=== PATIENT | female | born 1955 | race Caucasian/White ===

== ENCOUNTER → 2019-08-12 | Outpatient (CLI) | payer MEDICARE ==
[~2019-08-12] MED LIST: AZOR 10-20 MG1 EACH; FENTANYL TOP; Z MORPHINE SULFAT PO; Z NEURONTIN PO
--- NOTE | 2019-08-12 14:10 | Diagnostic Imaging Report ---
EXAM: CT Chest WITHOUT intravenous contrast 08/12/2019 1:07 PM INDICATION: Pneumothorax, positive TB test COMPARISON: Chest CT of 11/02/2013 TECHNIQUE: Chest was scanned utilizing a multidetector helical scanner from the lung apex through the level of the adrenal glands without administration of IV contrast. Coronal and sagittal reformations were obtained. Routine protocol was performed. IV CONTRAST: None RADIATION DOSE: Total DLP: 261.6 mGy*cm. Dose modulation, iterative reconstruction, and/or weight based adjustment of the mA/kV was utilized to reduce the radiation dose to as low as reasonably achievable. COMPLICATIONS: None FINDINGS: LINES/ TUBES: None. LUNGS AND AIRWAYS: The central airways are patent. No focal consolidation. Mild bilateral upper lobe predominant centrilobular emphysema. Mild biapical pleural parenchyma thickening/scarring. Postoperative changes related to remote right lobectomy. Bilateral 4 mm pulmonary nodules, for example on the left on series 2 image 83 and on the right on series 2 image 44. PLEURA: No pleural effusion or pneumothorax. HEART AND MEDIASTINUM: The thyroid gland is normal. Prominent bilateral axillary lymph nodes not meeting size criteria for lymphadenopathy. No supra clavicular, mediastinal, or hilar lymphadenopathy. The heart is not enlarged. No pericardial effusion. Scattered atherosclerotic calcifications involve the coronary arteries and thoracic aorta. UPPER ABDOMEN: Limited noncontrast enhanced images of the upper abdomen demonstrate no focal abnormality in the partially visualized liver, spleen, pancreas, adrenals, or upper kidneys. BONES: No acute osseous injury. No suspicious lytic or blastic lesions. SOFT TISSUES: Unremarkable. IMPRESSION: No pneumothorax. No focal pneumonia or pulmonary edema. Bilateral pulmonary nodules measuring up to 4 mm. If the patient is low risk, no further follow-up is needed. If the patient is high risk, follow-up chest CT is optional at 12 months per [employer] guidelines 2017. Signed by: Jerri Wood MD on 08/12/2019 2:07 PM
== END ==
LOC: CT 12:58
PROVIDERS: ATTEND Internal Medicine Critical Care Medicine
DX: R76.11 Nonspecific reaction to tuberculin skin test without active tuberculosis (principal); R91.8 Other nonspecific abnormal finding of lung field
CPT/HCPCS: 71250

== ENCOUNTER 2023-01-26 06:51 | Inpatient (IN) | payer MEDICARE ==
[2023-01-26] VITALS (12 sets, daily range): BP systolic 132–181; BP diastolic 80–107
[~2023-01-26] VITALS: Ht 157.5 cm; Wt 47.6 kg
[2023-01-26 07:15] LABS: HEMATOCRIT 45.2 % (34.2-44.1); HEMOGLOBIN 15.5 g/dL (12.0-16.0); LYMPHOCYTES # (AUTO) 40.6 (1.0-3.2); LYMPHOCYTES % 77.6 % (18.0-39.1); MEAN CORPUSCULAR HEMOGLOBIN 28.7 pg (28-32); MEAN CORPUSCULAR HGB CONC 34.3 g/dL (31-35); MEAN CORPUSCULAR VOLUME 83.5 fL (81-99); MONOCYTES # (AUTO) 0.7 (0.2-0.8); MONOCYTES % 1.4 % (4.4-11.3); NEUTROPHILS # (AUTO) 10.8 (2.1-6.9); NEUTROPHILS % 20.7 % (38.7-80.0); PLATELET COUNT 462 x10e3/uL (140-360); RED BLOOD COUNT 5.41 x10e6/uL (3.6-5.1); RED CELL DISTRIBUTION WIDTH 13.3 % (11.7-14.4)
[2023-01-26] MEDS ORDERED: NITROGLYCERIN 2% OINT 1 GM PKT TOP ONE (07:15)
[2023-01-26] MEDS ORDERED: ASPIRIN 81 MG CHEW TAB PO ONE ×2 (07:30→08:00)
[2023-01-26] MEDS ORDERED: SODIUM CHLORIDE 0.9% 1000ML 1,000 ML IV SCH (07:30)
[2023-01-26 07:39] LABS: ALBUMIN 4.6 g/dL (3.5-5.0); ALBUMIN/GLOBULIN RATIO 1.2 (0.8-2.0); ANION GAP 20.2 mmol/L (8-16); CREATININE, SERUM 1.69 mg/dL (0.57-1.11); POTASSIUM 3.2 mmol/L (3.5-5.1)
[2023-01-26] MEDS: FENTANYL CITRATE/PF 100MCG/2 ML INJ IV PRN ×3 (07:43→21:48)
[2023-01-26] MEDS ORDERED: FENTANYL CITRATE/PF 100MCG/2 ML INJ ONE (07:45)
[2023-01-26] MEDS ORDERED: ASPIRIN 300 MG SUPP PR STA (07:45)
[2023-01-26] MEDS ORDERED: ASPIRIN 300 MG SUPP PR ONE (07:49)
[2023-01-26] MEDS ORDERED: HEPARIN SOD (PORCINE) 5,000 UNIT/ML VIAL IV ONE (08:00)
[2023-01-26 08:03] LABS: INR 1.29; PROTHROMBIN TIME 16.6 seconds (11.9-14.5)
[2023-01-26] MEDS ORDERED: HYDRALAZINE HCL 20 MG/ML VIAL IV STA (08:04)
[2023-01-26] MEDS ORDERED: HEPARIN 25,000 UNIT DRIP IV ONE (08:10)
[2023-01-26] MEDS: Morphine 4mg INJECTION 4 MG/ML INJ IV PRN ×5 (08:15→23:31)
[2023-01-26] MEDS ORDERED: METOCLOPRAMIDE HCL 10 MG/2ML VIAL IV ONE (08:15)
[2023-01-26 08:19] LABS: CLARITY,URINE CLEAR (CLEAR); COLOR,URINE YELLOW (YELLOW); KETONES,URINE NEGATIVE (NEGATIVE); LEUKOCYTE ESTERASE ,URINE NEGATIVE (NEGATIVE); NITRITE,URINE NEGATIVE (NEGATIVE); PROTEIN,URINE DIPSTICK >=300 (NEGATIVE); URINE UROBILINOGEN 0.2 mg/dL (0.2 - 1)
[2023-01-26 08:22] LABS: BACTERIA,URINE MANY /HPF; EPITHELIAL CELLS,URINE FEW /LPF
[2023-01-26] MEDS ORDERED: HYDRALAZINE HCL 20 MG/ML VIAL ONE (08:22)
[2023-01-26] MEDS ORDERED: CLOPIDOGREL BISULFATE 75 MG TAB PO ONE (08:30)
[2023-01-26 08:32] LABS: LYMPHOCYTES % (MANUAL) 79 % (19-48); MONOCYTES % (MANUAL) 2 % (3.4-9.0); NEUTROPHILS % (MANUAL) 18 % (40-74); PLATELET ESTIMATE ADEQUATE
[2023-01-26 08:33] LABS: PLATELET MORPHOLOGY COMMENT NORMAL; RBC MORPHOLOGY COMMENT NORMAL
[2023-01-26] MEDS: HEPARIN 25,000 UNIT/D5W 250ML 600 UNIT in DEXTROSE 5% 250ML 250 ML IV SCH (08:35)
[2023-01-26] MEDS ORDERED: METOCLOPRAMIDE HCL 10 MG/2ML VIAL ONE (08:36)
[2023-01-26] MEDS: SODIUM CHLORIDE 0.9% 1000ML 1,000 ML IV SCH (13:06)
[2023-01-26 14:46] LABS: CREATINE KINASE MB 9.3 ng/mL (0-5.0)
[2023-01-26] MEDS: FAMOTIDINE 20 MG TAB PO SCH (15:37)
[2023-01-26] MEDS: ACETAMINOPHEN/CODEINE 300MG - 30MG TAB PO PRN (20:00)
[2023-01-26] MEDS: ATORVASTATIN 40 MG TAB PO SCH ×3 (21:00→21:59)
[2023-01-26] MEDS ORDERED: METOPROLOL TARTRATE INJ 1 MG/ML VIAL IV PRN (21:45)
[2023-01-26 22:42] LABS: CREATINE KINASE MB 7.1 ng/mL (0-5.0)
[2023-01-26] MEDS: ONDANSETRON HCL INJ 2MG/ML 2ML 2 MG/ML VIAL IV PRN (23:10)
[2023-01-27] VITALS (23 sets, daily range): BP systolic 132–179; BP diastolic 69–96
[2023-01-27] MEDS: FENTANYL CITRATE/PF 100MCG/2 ML INJ IV PRN ×4 (00:12→06:18)
[2023-01-27] MEDS: ONDANSETRON HCL INJ 2MG/ML 2ML 2 MG/ML VIAL IV PRN ×3 (03:10→20:01)
[2023-01-27] MEDS: Morphine 4mg INJECTION 4 MG/ML INJ IV PRN ×5 (03:34→20:02)
[2023-01-27] MEDS: SODIUM CHLORIDE 0.9% 1000ML 1,000 ML IV SCH ×2 (03:45→20:02)
[2023-01-27 05:21] LABS: BASOPHILS % 0.1 % (0.0-1.0); HEMATOCRIT 37.2 % (34.2-44.1); HEMOGLOBIN 12.2 g/dL (12.0-16.0); LYMPHOCYTES # (AUTO) 30.6 (1.0-3.2); LYMPHOCYTES % 81.4 % (18.0-39.1); MEAN CORPUSCULAR HEMOGLOBIN 28.2 pg (28-32); MEAN CORPUSCULAR HGB CONC 32.8 g/dL (31-35); MEAN CORPUSCULAR VOLUME 86.1 fL (81-99); MONOCYTES # (AUTO) 0.6 (0.2-0.8); MONOCYTES % 1.5 % (4.4-11.3); NEUTROPHILS # (AUTO) 6.3 (2.1-6.9); NEUTROPHILS % 16.8 % (38.7-80.0); PLATELET COUNT 354 x10e3/uL (140-360); RED BLOOD COUNT 4.32 x10e6/uL (3.6-5.1); RED CELL DISTRIBUTION WIDTH 13.3 % (11.7-14.4)
[2023-01-27 05:31] LABS: ANION GAP 12.2 mmol/L (8-16); CALCIUM 9.3 mg/dL (8.4-10.2); CREATININE, SERUM 1.02 mg/dL (0.57-1.11); MAGNESIUM 1.6 MG/DL (1.3-2.1); PHOSPHORUS 2.4 MG/DL (2.3-4.7); POTASSIUM 3.2 mmol/L (3.5-5.1)
[2023-01-27] MEDS: HYDRALAZINE HCL 20 MG/ML VIAL IV PRN (05:33)
[2023-01-27] MEDS: FAMOTIDINE 20 MG TAB PO SCH ×2 (07:27→16:30)
[2023-01-27] MEDS: ASPIRIN 325 MG TAB PO SCH (07:33)
[2023-01-27] MEDS: HEPARIN 25,000 UNIT/D5W 250ML 600 UNIT in DEXTROSE 5% 250ML 250 ML IV SCH (08:00)
[2023-01-27 10:33] LABS: LYMPHOCYTES % (MANUAL) 61 % (19-48); NEUTROPHILS % (MANUAL) 39 % (40-74); SMUDGE CELLS MANY
[2023-01-27 10:36] LABS: PLATELET ESTIMATE ADEQUATE; PLATELET MORPHOLOGY COMMENT NORMAL; RBC MORPHOLOGY COMMENT NORMAL
[2023-01-27] MEDS ORDERED: PAMIDRONATE DISODIUM 90 MG in SODIUM CHLORIDE 0.9% 500ML 500 ML IV ONE (11:00)
[2023-01-27] MEDS: ATORVASTATIN 40 MG TAB PO SCH (20:01)
[2023-01-28] VITALS (20 sets, daily range): BP systolic 131–170; BP diastolic 70–93
[2023-01-28] MEDS: ONDANSETRON HCL INJ 2MG/ML 2ML 2 MG/ML VIAL IV PRN ×5 (00:10→23:09)
[2023-01-28] MEDS: Morphine 4mg INJECTION 4 MG/ML INJ IV PRN ×6 (00:11→23:09)
[2023-01-28 04:45] LABS: BASOPHILS # (AUTO) 0.1 (0.0-0.1); BASOPHILS % 0.2 % (0.0-1.0); EOSINOPHILS % 0.2 % (0.0-6.0); HEMATOCRIT 34.2 % (34.2-44.1); LYMPHOCYTES # (AUTO) 21.7 (1.0-3.2); LYMPHOCYTES % 84.3 % (18.0-39.1); MEAN CORPUSCULAR HEMOGLOBIN 28.6 pg (28-32); MEAN CORPUSCULAR HGB CONC 32.2 g/dL (31-35); MONOCYTES # (AUTO) 0.3 (0.2-0.8); MONOCYTES % 1.3 % (4.4-11.3); NEUTROPHILS # (AUTO) 3.6 (2.1-6.9); NEUTROPHILS % 13.9 % (38.7-80.0); PLATELET COUNT 235 x10e3/uL (140-360); RED BLOOD COUNT 3.84 x10e6/uL (3.6-5.1)
[2023-01-28 04:49] LABS: MEAN CORPUSCULAR VOLUME 89.1 fL (81-99)
[2023-01-28 05:01] LABS: CALCIUM 8.2 mg/dL (8.4-10.2); CREATININE, SERUM 0.78 mg/dL (0.57-1.11)
[2023-01-28] MEDS: HEPARIN 25,000 UNIT/D5W 250ML 600 UNIT in DEXTROSE 5% 250ML 250 ML IV SCH (08:00)
[2023-01-28] MEDS: FAMOTIDINE 20 MG TAB PO SCH ×2 (08:31→17:06)
[2023-01-28] MEDS: ASPIRIN 325 MG TAB PO SCH (08:32)
[2023-01-28] MEDS: SODIUM CHLORIDE 0.9% 1000ML 1,000 ML IV SCH (09:36)
[2023-01-28] MEDS ORDERED: POTASSIUM CHLORIDE 10MEQ EA PO ONE (11:15)
[2023-01-28 11:33] LABS: LYMPHOCYTES % (MANUAL) 76 % (19-48); MONOCYTES % (MANUAL) 1 % (3.4-9.0); NEUTROPHILS % (MANUAL) 23 % (40-74)
[2023-01-28 11:35] LABS: PLATELET ESTIMATE ADEQUATE; PLATELET MORPHOLOGY COMMENT NORMAL; SMUDGE CELLS MANY
[2023-01-28] MEDS: ACETAMINOPHEN/CODEINE 300MG - 30MG TAB PO PRN (12:47)
[2023-01-28] MEDS: METOPROLOL TARTRATE 25 MG TAB PO SCH (17:08)
[2023-01-28] MEDS: NITROGLYCERIN 0.4 MG PATCH TOP SCH (17:43)
[2023-01-28] MEDS ORDERED: AMBIEN10 MG PO (17:51)
[2023-01-28] MEDS ORDERED: METHOCARBAMOL500 MG PO (18:25)
[2023-01-28] MEDS ORDERED: BROMPHENIR-PSE118 ML (18:25)
[2023-01-28] MEDS ORDERED: GABAPENTIN300 MG PO (18:25)
[2023-01-28] MEDS ORDERED: METHYLPREDNISOLO4 M1 (18:25)
[2023-01-28] MEDS ORDERED: MIRTAZAPINE15 MG (18:25)
[2023-01-28] MEDS ORDERED: CLONIDINE HCL0.1 MG PO (18:25)
[2023-01-28] MEDS ORDERED: LOSARTAN POTAS100 MG PO (18:25)
[2023-01-28] MEDS ORDERED: METHADONE H5 MG/5 ML PO (18:25)
[2023-01-28] MEDS ORDERED: DICLOFENAC SOD100 GM (18:25)
[2023-01-28] MEDS ORDERED: ONDANSETRON HCL8 MG PO (18:25)
[2023-01-28] MEDS ORDERED: ZOLPIDEM TARTRATE 10 MG TAB PO PRN (19:00)
[2023-01-28] MEDS: ATORVASTATIN 40 MG TAB PO SCH (20:16)
[2023-01-29] VITALS (11 sets, daily range): BP systolic 133–169; BP diastolic 74–84
[2023-01-29] MEDS: SODIUM CHLORIDE 0.9% 1000ML 1,000 ML IV SCH ×2 (03:21→16:19)
[2023-01-29] MEDS: ONDANSETRON HCL INJ 2MG/ML 2ML 2 MG/ML VIAL IV PRN (03:58)
[2023-01-29] MEDS: Morphine 4mg INJECTION 4 MG/ML INJ IV PRN ×3 (03:58→14:38)
[2023-01-29 04:54] LABS: BASOPHILS # (AUTO) 0.1 (0.0-0.1); BASOPHILS % 0.3 % (0.0-1.0); EOSINOPHILS # (AUTO) 0.1 (0.0-0.4); EOSINOPHILS % 0.4 % (0.0-6.0); HEMATOCRIT 33.6 % (34.2-44.1); HEMOGLOBIN 10.5 g/dL (12.0-16.0); LYMPHOCYTES % 81.7 % (18.0-39.1); MEAN CORPUSCULAR HEMOGLOBIN 28.2 pg (28-32); MEAN CORPUSCULAR HGB CONC 31.3 g/dL (31-35); MEAN CORPUSCULAR VOLUME 90.3 fL (81-99); MONOCYTES # (AUTO) 0.3 (0.2-0.8); MONOCYTES % 1.2 % (4.4-11.3); NEUTROPHILS # (AUTO) 3.7 (2.1-6.9); NEUTROPHILS % 16.1 % (38.7-80.0); PLATELET COUNT 234 x10e3/uL (140-360); RED BLOOD COUNT 3.72 x10e6/uL (3.6-5.1); RED CELL DISTRIBUTION WIDTH 14.2 % (11.7-14.4)
[2023-01-29 05:19] LABS: ANION GAP 13.6 mmol/L (8-16); CALCIUM 7.6 mg/dL (8.4-10.2); CREATININE, SERUM 0.91 mg/dL (0.57-1.11); POTASSIUM 3.6 mmol/L (3.5-5.1)
[2023-01-29 08:01] LABS: EOSINOPHILS % (MANUAL) 2 % (0-7); LYMPHOCYTES % (MANUAL) 56 % (19-48); MONOCYTES % (MANUAL) 4 % (3.4-9.0); NEUTROPHILS % (MANUAL) 38 % (40-74); PLATELET ESTIMATE ADEQUATE; PLATELET MORPHOLOGY COMMENT NORMAL; RBC MORPHOLOGY COMMENT NORMAL
[2023-01-29] MEDS: FAMOTIDINE 20 MG TAB PO SCH ×2 (08:08→16:08)
[2023-01-29] MEDS: ASPIRIN 325 MG TAB PO SCH (08:08)
[2023-01-29] MEDS: METOPROLOL TARTRATE 25 MG TAB PO SCH ×2 (08:09→16:09)
[2023-01-29] MEDS: NITROGLYCERIN 0.4 MG PATCH TOP SCH (08:09)
[2023-01-29] MEDS ORDERED: NITROGLYCERIN 0.4 MG PATCH TOP SCH (09:00)
[2023-01-29] MEDS: HYDRALAZINE HCL 20 MG/ML VIAL IV PRN (17:05)
[2023-01-29] MEDS ORDERED: LOPRESSOR25 MG PO (19:16)
[2023-01-29] MEDS ORDERED: FAMOTIDINE20 MG PO (19:16)
[2023-01-29] MEDS ORDERED: ASPIRIN EC81 MG PO (19:16)
[2023-01-29] MEDS ORDERED: Atorvastatin PO (19:16)
[2023-01-29] MEDS ORDERED: PLAVIX75 MG PO (19:23)
[2023-01-29] MEDS: ACETAMINOPHEN/CODEINE 300MG - 30MG TAB PO PRN (19:59)
== END 2023-01-29 20:10 | disposition home or self-care (01) | DRG 281 ==
LOC: ER 06:57 → ERHOLD 07:55 → ICU 12:37
PROVIDERS: ADMIT Internal Medicine; ATTEND Internal Medicine
DX: I21.4 Non-ST elevation (NSTEMI) myocardial infarction (principal); C91.10 Chronic lymphocytic leukemia of B-cell type not having achieved remission; N17.9 Acute kidney failure, unspecified; N39.0 Urinary tract infection, site not specified; M62.82 Rhabdomyolysis; J44.9 Chronic obstructive pulmonary disease, unspecified; E87.6 Hypokalemia; E83.52 Hypercalcemia; I12.9 Hypertensive chronic kidney disease with stage 1 through stage 4 chronic kidney disease, or unspecified chronic kidney disease; N18.9 Chronic kidney disease, unspecified; E88.09 Other disorders of plasma-protein metabolism, not elsewhere classified; E78.5 Hyperlipidemia, unspecified; Z20.822 Contact with and (suspected) exposure to COVID-19; Z88.0 Allergy status to penicillin; Z87.891 Personal history of nicotine dependence; Z88.2 Allergy status to sulfonamides; Z59.6 Low income
CPT/HCPCS: 36415; 51700; 71045; 71250; 74176; 80048; 80053; 81001; 82550; 82553; 82784; 83690; 83735; 83970; 84100; 84484; 85025; 85379; 85384; 85610; 85730; 93005; 93306; 94799; 99252; 99285; J1644; J2270; J2405; J2430; J2765; J7030; J7040

== ENCOUNTER 2023-01-31 03:51 | Emergency (ER) | payer MEDICARE ==
[~2023-01-31] VITALS: Ht 157.5 cm; Wt 47.6 kg
[~2023-01-31 03:51] MED LIST changes: +AMBIEN10 MG PO; +ASPIRIN EC81 MG PO; +Atorvastatin PO; +BROMPHENIR-PSE118 ML; +CLONIDINE HCL0.1 MG PO; +DICLOFENAC SOD100 GM; +FAMOTIDINE20 MG PO; +GABAPENTIN300 MG PO; +LOPRESSOR25 MG PO; +LOSARTAN POTAS100 MG PO; +METHADONE H5 MG/5 ML PO; +METHOCARBAMOL500 MG PO; +METHYLPREDNISOLO4 M1; +MIRTAZAPINE15 MG; +ONDANSETRON HCL8 MG PO; +PLAVIX75 MG PO
[2023-01-31] MEDS ORDERED: ONDANSETRON HCL INJ 2MG/ML 2ML 2 MG/ML VIAL IV STA (04:03)
[2023-01-31 04:06] LABS: BASOPHILS # (AUTO) 0.1 (0.0-0.1); BASOPHILS % 0.2 % (0.0-1.0); EOSINOPHILS % 0.1 % (0.0-6.0); HEMATOCRIT 40.8 % (34.2-44.1); HEMOGLOBIN 13.2 g/dL (12.0-16.0); LYMPHOCYTES # (AUTO) 26.2 (1.0-3.2); LYMPHOCYTES % 69.6 % (18.0-39.1); MEAN CORPUSCULAR HEMOGLOBIN 28.4 pg (28-32); MEAN CORPUSCULAR HGB CONC 32.4 g/dL (31-35); MEAN CORPUSCULAR VOLUME 87.7 fL (81-99); MONOCYTES # (AUTO) 0.5 (0.2-0.8); MONOCYTES % 1.4 % (4.4-11.3); NEUTROPHILS # (AUTO) 10.7 (2.1-6.9); NEUTROPHILS % 28.5 % (38.7-80.0); PLATELET COUNT 274 x10e3/uL (140-360); RED BLOOD COUNT 4.65 x10e6/uL (3.6-5.1); RED CELL DISTRIBUTION WIDTH 13.6 % (11.7-14.4)
[2023-01-31] MEDS ORDERED: Morphine 4mg INJECTION 4 MG/ML INJ IV ONE (04:15)
[2023-01-31] MEDS ORDERED: Morphine 4mg INJECTION 4 MG/ML INJ ONE (04:19)
[2023-01-31] MEDS ORDERED: ONDANSETRON HCL INJ 2MG/ML 2ML 2 MG/ML VIAL ONE (04:20)
[2023-01-31 04:25] LABS: ALBUMIN/GLOBULIN RATIO 1.3 (0.8-2.0); ANION GAP 18.5 mmol/L (8-16); CALCIUM 8.8 mg/dL (8.4-10.2); CREATININE, SERUM 0.89 mg/dL (0.57-1.11); POTASSIUM 3.5 mmol/L (3.5-5.1)
[2023-01-31] MEDS ORDERED: NITROGLYCERIN 2% OINT 1 GM PKT TOP ONE (04:30)
[2023-01-31 04:32] LABS: CREATINE KINASE MB 2.1 ng/mL (0-5.0)
[2023-01-31] MEDS ORDERED: NITROGLYCERIN 2% OINT 1 GM PKT ONE (04:44)
[2023-01-31 05:16] LABS: CREATINE KINASE MB 2.1 ng/mL (0-5.0)
== END 2023-01-31 05:33 | disposition home or self-care (01) ==
LOC: ER 03:58
DX: R10.13 Epigastric pain (principal); R07.89 Other chest pain; F11.23 Opioid dependence with withdrawal; I10 Essential (primary) hypertension; R94.31 Abnormal electrocardiogram [ECG] [EKG]; F17.210 Nicotine dependence, cigarettes, uncomplicated; Z85.89 Personal history of malignant neoplasm of other organs and systems
CPT/HCPCS: 36415; 80053; 82550; 82553; 83690; 84484; 85025; 93005; 99283; C9113; J2270; J2405